=== PATIENT | female | born 1995 | race Caucasian/White ===

== ENCOUNTER 2020-12-12 20:37 | Emergency (ER) | payer SELFPAY ==
[2020-12-12] MEDS ORDERED: Sodium Chloride 0.9% 10 ML Syringe FLUSH PRN (20:41)
[2020-12-12] MEDS ORDERED: Lactated Ringers 1,000 ML IV ONE (20:43)
--- NOTE | 2020-12-12 20:54 | EDM.PDOCBH ---
ED HPI GENERAL MEDICAL PROBLEM - General Chief Complaint: Drug or Alcohol Abuse Stated Complaint: MEDICAL VIA [facility] Time Seen by Provider: 12/12/20 20:40 Source of Information: Reports: Patient, EMS, Family, Old Records History Limitations: Reports: Intoxication - History of Present Illness INITIAL COMMENTS - FREE TEXT/NARRATIVE: 25 yo female going through a divorce presents via EMS after she apparently ingested unknown pills and drank alcohol. When found was fairly obtunded. Vitals stable en route via EMS except for some tachycardia. Is on Lexapro, Seroquel, amphetamines, Ativan, and Zyprexa. - Related Data Allergies Allergy/AdvReac Type Severity Reaction Status Date / Time No Known Allergies Allergy Verified 12/12/20 20:44 Home Meds: Home Meds Amphetamine/Dextroamphetamine [Adderall] 20 mg PO DAILY 12/12/20 [History] Amphetamine/Dextroamphetamine [Adderall] 20 mg PO PCDINNER 12/12/20 [History] Amphetamine/Dextroamphetamine [Adderall] 20 mg PO PCLUNCH 12/12/20 [History] Escitalopram [Lexapro] 10 mg PO DAILY 12/12/20 [History] LORazepam [Ativan] 1 mg PO BID PRN 12/12/20 [History] OLANZapine [Olanzapine] 5 mg PO BEDTIME 12/12/20 [History] QUEtiapine Fumarate [Quetiapine Fumarate ER] 800 mg PO BEDTIME 12/12/20 [History] norgestimate-ethinyl estradioL [Tri-Sprintec Tablet] 1 tab PO ASDIRECTED 12/12/20 [History] Social & Family History - Tobacco Use Tobacco Use Status *Q: Former Tobacco User Years of Tobacco use: 4 Used Tobacco, but Quit: Yes Month/Year Tobacco Last Used: 2018 - Caffeine Use Caffeine Use: Reports: Coffee, Soda - Recreational Drug Use Recreational Drug Use: No ED ROS GENERAL - Review of Systems Review Of Systems: Unable To Obtain Reason Not Obtained: obtundation ED EXAM, BEHAVIORAL HEALTH - Physical Exam Exam: See Below Exam Limited By: No Limitations General Appearance: WD/WN, No Apparent Distress, Lethargic, Obtunded Eye Exam: Bilateral Eye: Normal Inspection Ears: Normal External Exam, Normal Canal, Hearing Grossly Normal, Normal TMs Nose: Normal Inspection, No Blood Throat/Mouth: Normal Inspection, Normal Lips, Normal Oropharynx, Normal Voice, No Airway Compromise Head: Atraumatic, Normocephalic Neck: Normal Inspection Respiratory/Chest: No Respiratory Distress, Lungs Clear, Normal Breath Sounds, No Accessory Muscle Use Cardiovascular: Regular Rate, Rhythm, No Edema, Tachycardia GI/Abdominal: Soft, Non-Tender, No Distention Extremities: Normal Inspection, Normal Range of Motion, Non-Tender, No Pedal Edema Neurological: CN II-XII Intact, No Motor/Sensory Deficits. No: Alert, Normal Mood/Affect, Normal Cognition, Oriented x 3 Psychiatric: Other (lethargic/obtunded). No: Uncooperative Skin Exam: Warm, Dry, Intact, Normal color, No rash #1 Interpretation EKG Date: 12/12/20 Time: 20:50 Rhythm: NSR Rate (Beats/Min): 103 [place]: RAD-Right [place] Deviation P-Wave: Present QRS: Normal ST-T: Normal QT: Prolonged Comparison: NA - No Prior EKG COURSE, BEHAVIORAL HEALTH COMP - Course Vital Signs: Last Vital Signs Temp 35.4 C L 12/12/20 21:06 Pulse 99 12/12/20 21:06 Resp 16 12/12/20 21:06 BP 116/71 12/12/20 21:06 Pulse Ox 100 12/12/20 21:06 Orders, Labs, Meds: Active Orders 24 hr Category Date Time Status Cardiac Monitoring [RC] .As Directed Care 12/12/20 20:41 Active EKG Documentation Completion [RC] ASDIRECTED Care 12/12/20 20:44 Active Cantu Catheter Insertion [Insert Urinary Catheter] [OM. Care 12/12/20 20:45 Ordered PC] Q24H Urinary Catheter Assessment [RC] ASDIRECTED Care 12/12/20 20:42 Active Lactated Ringers [Ringers, Lactated] 1,000 ml Med 12/12/20 20:43 Active IV BOLUS Sodium Chloride 0.9% [Saline Flush] Med 12/12/20 20:41 Active 10 ml FLUSH ASDIRECTED PRN Saline Lock Insert [OM.PC] Routine Oth 12/12/20 20:41 Ordered EKG 12 Lead [EK] Routine Ther 12/12/20 20:43 Ordered Medication Orders Lactated Ringer's (Ringers, Lactated) 1,000 mls @ 1,000 mls/hr IV BOLUS ONE Stop: 12/12/20 21:42 Last Admin: 12/12/20 20:59 Dose: 1,000 mls/hr Documented by: HARJINDER Sodium Chloride (Sodium Chloride 0.9% 10 Ml Syringe) 10 ml FLUSH ASDIRECTED PRN PRN Reason: Keep Vein Open Last Admin: 12/12/20 21:19 Dose: 10 ml Documented by: DENILSON Laboratory Tests 12/12/20 12/12/20 12/12/20 Range/Units 20:59 20:59 20:59 WBC 8.9 (4.5-11.0) K/uL RBC 4.59 (3.30-5.50) M/uL Hgb 13.5 (12.0-15.0) g/dL Hct 40.5 (36.0-48.0) % MCV 88 (80-98) fL MCH 29 (27-31) pg MCHC 33 (32-36) % Plt Count 168 (150-400) K/uL Sodium 142 (140-148) mmol/L Potassium 3.6 (3.6-5.2) mmol/L Chloride 103 (100-108) mmol/L Carbon Dioxide 22 (21-32) mmol/L Anion Gap 16.7 H (5.0-14.0) mmol/L BUN 6 L (7-18) mg/dL Creatinine 0.8 (0.6-1.0) mg/dL Est Cr Clr Drug Dosing 90.77 mL/min Estimated GFR (MDRD) > 60 (>60) Glucose 108 H (74-106) mg/dL Calcium 8.7 (8.5-10.1) mg/dL Total Bilirubin 0.2 (0.2-1.0) mg/dL AST 24 (15-37) U/L ALT 21 (12-78) U/L Alkaline Phosphatase 60 (46-116) U/L Total Protein 7.5 (6.4-8.2) g/dL Albumin 3.5 (3.4-5.0) g/dL Globulin 4.0 H (2.3-3.5) g/dL Albumin/Globulin Ratio 0.9 L (1.2-2.2) Urine Color (YELLOW) Urine Appearance (CLEAR) Urine pH (5.0-8.0) Ur Specific [place] (1.008-1.030) Urine Protein (NEGATIVE) mg/dL Urine Glucose (UA) (NEGATIVE) mg/dL Urine Ketones (NEGATIVE) mg/dL Urine Occult Blood (NEGATIVE) Urine Nitrite (NEGATIVE) Urine Bilirubin (NEGATIVE) Urine Urobilinogen (0.2-1.0) EU/dL Ur Leukocyte Esterase (NEGATIVE) Urine RBC (0-5) Urine WBC (0-5) Ur Epithelial Cells Amorphous Sediment Urine Bacteria Urine Mucus Salicylates 0.8 L (2.0-20.0) mg/dL Urine Opiates Screen (NEGATIVE) Ur Oxycodone Screen (NEGATIVE) Urine Methadone Screen (NEGATIVE) Ur Propoxyphene Screen (NEGATIVE) Acetaminophen 0.0 L (10.0-30.0) ug/mL Ur Barbiturates Screen (NEGATIVE) Ur Tricyclics Screen (NEGATIVE) Ur Phencyclidine Scrn (NEGATIVE) Ur Amphetamine Screen (NEGATIVE) U Methamphetamines Scrn (NEGATIVE) Urine MDMA Screen (NEGATIVE) U Benzodiazepines Scrn (NEGATIVE) U Cocaine Metab Screen (NEGATIVE) U Marijuana (THC) Screen (NEGATIVE) Ethyl Alcohol mg/dL 12/12/20 12/12/20 12/12/20 Range/Units 20:59 21:14 21:14 WBC (4.5-11.0) K/uL RBC (3.30-5.50) M/uL Hgb (12.0-15.0) g/dL Hct (36.0-48.0) % MCV (80-98) fL MCH (27-31) pg MCHC (32-36) % Plt Count (150-400) K/uL Sodium (140-148) mmol/L Potassium (3.6-5.2) mmol/L Chloride (100-108) mmol/L Carbon Dioxide (21-32) mmol/L Anion Gap (5.0-14.0) mmol/L BUN (7-18) mg/dL Creatinine (0.6-1.0) mg/dL Est Cr Clr Drug Dosing mL/min Estimated GFR (MDRD) (>60) Glucose (74-106) mg/dL Calcium (8.5-10.1) mg/dL Total Bilirubin (0.2-1.0) mg/dL AST (15-37) U/L ALT (12-78) U/L Alkaline Phosphatase (46-116) U/L Total Protein (6.4-8.2) g/dL Albumin (3.4-5.0) g/dL Globulin (2.3-3.5) g/dL Albumin/Globulin Ratio (1.2-2.2) Urine Color Yellow (YELLOW) Urine Appearance Slightly cloudy A (CLEAR) Urine pH 5.0 (5.0-8.0) Ur Specific [place] >= 1.030 (1.008-1.030) Urine Protein Negative (NEGATIVE) mg/dL Urine Glucose (UA) Negative (NEGATIVE) mg/dL Urine Ketones Negative (NEGATIVE) mg/dL Urine Occult Blood Negative (NEGATIVE) Urine Nitrite Negative (NEGATIVE) Urine Bilirubin Negative (NEGATIVE) Urine Urobilinogen 0.2 (0.2-1.0) EU/dL Ur Leukocyte Esterase Negative (NEGATIVE) Urine RBC 0-5 (0-5) Urine WBC 0-5 (0-5) Ur Epithelial Cells Rare Amorphous Sediment Many Urine Bacteria Rare Urine Mucus Not seen Salicylates (2.0-20.0) mg/dL Urine Opiates Screen Negative (NEGATIVE) Ur Oxycodone Screen Negative (NEGATIVE) Urine Methadone Screen Negative (NEGATIVE) Ur Propoxyphene Screen Negative (NEGATIVE) Acetaminophen (10.0-30.0) ug/mL Ur Barbiturates Screen Negative (NEGATIVE) Ur Tricyclics Screen Presumptive positive H (NEGATIVE) Ur Phencyclidine Scrn Negative (NEGATIVE) Ur Amphetamine Screen Negative (NEGATIVE) U Methamphetamines Scrn Negative (NEGATIVE) Urine MDMA Screen Negative (NEGATIVE) U Benzodiazepines Scrn Presumptive positive H (NEGATIVE) U Cocaine Metab Screen Negative (NEGATIVE) U Marijuana (THC) Screen Negative (NEGATIVE) Ethyl Alcohol 69 mg/dL Medications Generic Name Dose Route Start Last Admin Trade Name Freq PRN Reason Stop Dose Admin Lactated Ringer's 1,000 mls @ 1,000 mls/hr 12/12/20 20:43 12/12/20 20:59 Ringers, Lactated IV 12/12/20 21:42 1,000 mls/hr BOLUS ONE Administration Sodium Chloride 10 ml 12/12/20 20:41 12/12/20 21:19 Sodium Chloride 0.9% 10 Ml Syringe FLUSH 10 ml ASDIRECTED PRN Administration Keep Vein Open Re-Assessment/Re-Exam: Dr. Hameed called @ [id number] Departure - Departure Time of Disposition: 21:40 Disposition: Admitted As Inpatient 64 Condition: Fair Clinical Impression: Suicidal ideation, Drug ingestion - Discharge Information *PRESCRIPTION DRUG MONITORING PROGRAM REVIEWED*: Not Applicable *COPY OF PRESCRIPTION DRUG MONITORING REPORT IN PATIENT [place]: Not Applicable Referrals: PCP,None [Primary Care Provider] - Forms: ED Department Discharge Sepsis Event Note (ED) - Focused Exam Vital Signs: Vital Signs Temp Pulse Resp BP Pulse Ox 12/12/20 21:06 35.4 C L 99 16 116/71 100 - My Orders Last 24 Hours: My Active Orders 12/12/20 20:41 Cardiac Monitoring [RC] .As Directed Sodium Chloride 0.9% [Saline Flush] 10 ml FLUSH ASDIRECTED PRN Saline Lock Insert [OM.PC] Routine 12/12/20 20:42 Urinary Catheter Assessment [RC] ASDIRECTED 12/12/20 20:43 Lactated Ringers [Ringers, Lactated] 1,000 ml IV BOLUS EKG 12 Lead [EK] Routine 12/12/20 20:44 EKG Documentation Completion [RC] ASDIRECTED 12/12/20 20:45 Cantu Catheter Insertion [Insert Urinary Catheter] [OM.PC] Q24H - Assessment/Plan Last 24 Hours: My Active Orders 12/12/20 20:41 Cardiac Monitoring [RC] .As Directed Sodium Chloride 0.9% [Saline Flush] 10 ml FLUSH ASDIRECTED PRN Saline Lock Insert [OM.PC] Routine 12/12/20 20:42 Urinary Catheter Assessment [RC] ASDIRECTED 12/12/20 20:43 Lactated Ringers [Ringers, Lactated] 1,000 ml IV BOLUS EKG 12 Lead [EK] Routine 12/12/20 20:44 EKG Documentation Completion [RC] ASDIRECTED 12/12/20 20:45 Cantu Catheter Insertion [Insert Urinary Catheter] [OM.PC] Q24H
[2020-12-12] MEDS ORDERED: Lactated Ringers 1,000 ML IV SCH (22:45)
== END 2020-12-12 23:30 | disposition critical access hospital (66) ==
LOC: JP.ED 20:37
DX: T50.905A Adverse effect of unspecified drugs, medicaments and biological substances, initial encounter (principal); Z87.891 Personal history of nicotine dependence
CPT/HCPCS: 36415; 51702; 80053; 80143; 80179; 80305; 80307; 81001; 83735; 85027; 93005; 99283; 99285; J7120